=== PATIENT | male | born 1940 | race American Indian/Alaskan Native ===

== ENCOUNTER 2016-09-07 06:49 | Day surgery (SDC) | payer MEDICARE ==
[2014-12-31 08:54] VITALS: BMI 29.9
[2016-09-07] MEDS ORDERED: Propofol 10 mg/ml Inj (20 ML) ONE (07:31)
[2016-09-07] MEDS ORDERED: Midazolam 2 MG/2 ML VIAL ONE (07:31)
[2016-09-07] MEDS ORDERED: Bupivacaine HCl 0.5% PF (10 ml) Inj ONE ×2 (07:50)
[2016-09-07] MEDS ORDERED: ceFAZolin IV 2 gm in Dextrose 0 GM/0 ML BAG IVPB ONE (07:50)
[2016-09-07] MEDS ORDERED: Lactated Ringer's 1,000 ML IV ONE (08:00)
[2016-09-07] MEDS ORDERED: ceFAZolin IV 1 gm in Dextrose 1 GM/50 ML BAG IVPB ONE (08:08)
[2016-09-07] MEDS ORDERED: Lidocaine 1% Inj (20ml) ONE ×2 (08:08→08:19)
[2016-09-07] MEDS ORDERED: HYDROmorphone 0.5 mg/0.5 ml ISec IVP PRN (08:25)
[2016-09-07 10:07] VITALS: O2SAT 100
--- NOTE | 2016-09-07 10:23 | PCM.SURG1 ---
Surgeon's Initial Post Op Note - Surgeon's Notes Surgeon: medardo deluna Air Dispatcher: none Type of Anesthesia: IV Sedation, Local Pre-Operative Diagnosis: penile lesion Operative Findings: same Post-Operative Diagnosis: same Operation Performed: excision of penile lesion Specimen/Specimens Removed: penile lesion Estimated Blood Loss: EBL {In ML}: 0 Blood Products Given: N/A Drains Used: No Drains Post-Op Condition: Good Date of Surgery/Procedure: 09/07/16 Time of Surgery/Procedure: 09:00
[2016-09-07 10:46] VITALS: BP 125/74; PULSE 56; RESP 18; TEMP 98
--- NOTE | 2016-09-10 06:40 | OP ---
PROCEDURE DATE: 09/07/2016 PREOPERATIVE DIAGNOSIS: Penile lesion. POSTOPERATIVE DIAGNOSIS: Penile lesion. PROCEDURE: 1. Penile field block. 2. Excision of penile lesion. OPERATING SURGEON: Dr. Michelle Livingston. DESCRIPTION OF PROCEDURE: The patient was placed in the supine position. Genitalia were prepped and draped sterilely. Sedation was provided by the anesthesiologist. Perioperative antibiotics were administered. There was an indurated lesion involving the right dorsal lateral distal shaft just approximal to the alvarez. Lidocaine 1% solution was infiltrated circumferentially at the base of the penis for a penile field block and additionally, lidocaine was infiltrated below the skin lesion. An elliptical skin incision was made using the needle point electrocautery in cutting mode. The incision was then extended through the skin into the subcutaneous layers. The lesion was fully excised. Hematosis was achieved. The specimen was sent for pathologic examination. The wound was irrigated. The wound was reapproximated with simple interrupted sutures of 4-0 chromic. A sterile dressing was applied. The patient tolerate the procedure without complication. Michelle Livingston MD
== END 2016-09-07 11:12 | disposition home or self-care (01) ==
LOC: C.SDS 06:49
PROVIDERS: ATTEND Urology
DX: N48.9 Disorder of penis, unspecified (principal)
CPT/HCPCS: 11421; 82948; 88305; J0690; J7120